=== PATIENT | female | born 1995 | race American Indian/Alaskan Native ===

== ENCOUNTER 2017-06-26 22:35 | Emergency (ER) | payer OTHER, BC ==
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
[2017-06-27] MEDS ORDERED: TRIPLE ANTIBIOTIC TP ONE (00:01)
[2017-06-27] MEDS ORDERED: NORCO 5/325 PO ONE (00:01)
[2017-06-27] MEDS ORDERED: BOOSTRIX IM ONE (00:01)
[2017-06-27 00:02] LABS: HCG Qualitative,Urine Negative (Negative)
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
[2017-06-27 02:06] VITALS: BP 120/74
== END 2017-06-27 02:05 | disposition home or self-care (01) ==
LOC: ED 22:35
DX: S80.211A Abrasion, right knee, initial encounter (principal); S20.212A Contusion of left front wall of thorax, initial encounter; V89.2XXA Person injured in unspecified motor-vehicle accident, traffic, initial encounter; Y93.89 Activity, other specified; Y92.89 Other specified places as the place of occurrence of the external cause; Y99.8 Other external cause status
CPT/HCPCS: 70450; 71046; 72040; 74019; 81025; 99284